=== PATIENT | male | born 1950 | race Caucasian/White ===

== ENCOUNTER 2017-01-29 23:54 | Emergency (ER) | payer SELFPAY ==
[2017-01-30] MEDS ORDERED: Ondansetron HCl/PF 4 MG/2 ML Vial ONE (00:38)
[2017-01-30] MEDS ORDERED: Ketorolac Tromethamine 30 MG/ML VIAL ONE (00:38)
[2017-01-30 00:55] LABS: #Eosinphils 0.1 thou/uL (0.0-0.7); #Lymphocytes 1.4 thou/uL (1.20-3.40); #Monocytes 0.7 thou/uL (0.11-0.59); %Basophils 0.2 % (0.0-1.0); %Lymphocytes 14.9 % (21.0-51.0); %Monocytes 7.2 % (0.0-10.0); Mean Platelet Volume 7.7 fL (7.4-10.4); Red Blood Cell (RBC) Count 5.07 mill/uL (4.70-6.10); White Blood Cell (WBC) Count 9.1 thou/uL (4.8-10.8)
[2017-01-30 01:10] LABS: Bilirubin Negative (Negative); Blood, Urine Large (Negative); Glucose, Urine (Dipstick) Negative (Negative); Ketone, Urine Negative (Negative); Nitrite Negative (Negative); Protein, Urine (Dipstick) Negative (Neg-Trace); Urobilinogen 0.2 mg/dL (0.2-1.0)
[2017-01-30 01:11] LABS: Bacteria/HPF None Seen HPF (None Seen); Hyaline Casts/LPF 0-3 HYALINE CAST LPF (0-3 Hyaline); RBC/HPF 21-50 HPF (0-3); Squamous Epithelial None Seen HPF (0-3); WBC/HPF 0-3 HPF (0-3)
[2017-01-30 01:18] LABS: ALT (SGPT) 24 U/L (8-55); AST (SGOT) 20 U/L (5-34); Alkaline Phosphatase 67 U/L (40-150); Anion Gap 12 mmol/L (10-20); BUN (Urea Nitrogen) 20 mg/dL (8.4-25.7); Bilirubin, Total 0.4 mg/dL (0.2-1.2); CK (CPK) 196 U/L (30-200); Calc. Creatinine Clearance 0 mL/min (70-130); Calcium 8.7 mg/dL (7.8-10.44); Carbon Dioxide 28 mmol/L (23-31); Chloride 104 mmol/L (98-107); Estimated GFR-MDRD 85; Globulin 3.7 g/dL (2.4-3.5); Lipase 13 U/L (8-78); Protein, Total 7.5 g/dL (5.8-8.1)
[2017-01-30 01:58] LABS: Lactic Acid - Sepsis 1.9 mmol/L (0.5-2.2)
--- NOTE | 2017-01-30 09:42 | CT ---
PRELIMINARY REPORT/[facility]/EMERGENCY AFTER HOURS PROCEDURE: EXAM: CT Abdomen and Pelvis Without Intravenous Contrast CLINICAL HISTORY: 66 years old, male; Pain; Abdominal pain; Localized; Right; Patient HX: Er 14; Patient reports he had a sudden onset of right sided back pain. States he went to [place] this morning and he thinks mayb e he ate too much. Reports vomiting x 2. Has HX of kidney stones TECHNIQUE: Axial computed tomography images of the abdomen and pelvis without intravenous contrast. Coronal reformatted images were created and reviewed. COMPARISON: No relevant prior studies available. FINDINGS: Lower thorax: Small-sized hiatal hernia. ABDOMEN: Liver: Normal. Gallbladder and bile ducts: Normal. Pancreas: Normal. Spleen: Normal. Adrenals: Normal. Kidneys and ureters: Right hydronephrosis, with obstructive 2 mm calculus within the right proximal u reter. Stomach and bowel: Normal. Appendix: Appendix is normal. PELVIS: Bladder: Normal. Reproductive: Normal as visualized. ABDOMEN and PELVIS: Intraperitoneal space: Normal. No free air. No significant fluid collection. Bones/joints: Degenerative changes of the hips and sacroiliac joints. Minimal thoracolumbar spine deg enerative changes. No acute fracture. No dislocation. Soft tissues: Small fat-containing right inguinal hernia, without acute complications. Vasculature: Minimal atherosclerotic calcification of the abdominal aorta and iliac arteries. No abdo bart aortic aneurysm. Lymph nodes: Normal. IMPRESSION: 1. Right hydronephrosis, with obstructive 2 mm calculus within the right proximal ureter. 2. Incidental/non-acute findings are described above. Thank you for allowing us to participate in the care of your patient. Dictated and Authenticated by: Sebastian Ayala MD 01/30/2017 1:11 AM Central Time ([place] & [place]) FINAL REPORT CT OF THE ABDOMEN AND PELVIS WITHOUT CONTRAST: DATE: 01/30/17. COMPARISON: None. HISTORY: Right-sided flank pain for 1 hour. FINDINGS: I agree with the preliminary [facility] report. The lack of contrast limits assessment of the viscera, bowel vascular structures, and for lymphadenop athy. There is a tiny pleural-based nodule in the right lung base on image 3 measuring 3-4 mm, of doubtful clinical significance. No free intraperitoneal air or fluid. Liver, spleen, gallbladder, pancreas, and adrenal glands are unremarkable. There is no nephrolithiasis or evidence for obstructive uropathy on the left. There is hydronephrosis and nephromegaly with perinephric stranding on the right, evidence of obstruc tive uropathy. On image 49, there is a 2 mm calcification along the course of the right ureter sugge sting an obstructing stone. Limited evaluation of the bowel is grossly unremarkable. There is degenerative change involving the facet joints at the lower lumbar spine and the bilateral s acroiliac joints. IMPRESSION: Right-sided hydronephrosis secondary to an obstructing 2 mm stone within the proximal right ureter. POS: [facility]
== END 2017-01-30 02:06 | disposition home or self-care (01) ==
LOC: ERS 23:54
DX: N13.2 Hydronephrosis with renal and ureteral calculous obstruction (principal)
CPT/HCPCS: 36415; 74176; 80053; 81003; 81015; 82150; 82550; 83605; 83690; 85025; 96361; 96374; J1885; J2405